=== PATIENT | female | born 1935 | race Caucasian/White ===

== ENCOUNTER 2018-04-30 23:38 | Emergency (ER) | payer MEDICARE, BC ==
[~2018-04-30] VITALS: Ht 157.5 cm; Wt 83.0 kg
[2018-05-01] MEDS ORDERED: Exforge 10-3201 EACH PO (00:27)
[2018-05-01] MEDS ORDERED: ATEN50 PO (00:27)
[2018-05-01] MEDS ORDERED: FURO40 PO (00:27)
[2018-05-01] MEDS ORDERED: CLON.1 PO (00:28)
[2018-05-01] MEDS ORDERED: K-Dur 20 meq T20 MEQ PO (00:28)
[2018-05-01] MEDS ORDERED: Simvastatin20 MG PO (00:29)
[2018-05-01] MEDS ORDERED: Flovent Diskus50 MCG INH (00:29)
[2018-05-01] MEDS ORDERED: CENTRUM SILVER1 EAC2 PO (00:32)
[2018-05-01] MEDS ORDERED: ASCO500 PO (00:32)
[2018-05-01] MEDS ORDERED: Fergon240 M1 PO (00:32)
[2018-05-01] MEDS ORDERED: ASPI81CH PO (00:33)
[2018-05-01] MEDS ORDERED: CHOL10002 PO (00:33)
[2018-05-01] MEDS ORDERED: CLARITIN10 MG PO (00:36)
[2018-05-01] MEDS ORDERED: [UNRECOGNIZED DRUG - OTHER] PO (00:36)
[2018-05-01] MEDS ORDERED: GLUCOSAMINE &1 EACH PO (00:37)
[2018-05-01] MEDS ORDERED: Colace100 MG PO (00:37)
[2018-05-01] MEDS ORDERED: ALLEGRA ALLERGY60 MG PO (00:37)
[2018-05-01] MEDS ORDERED: Metamucil Smooth1 EA PO (00:38)
[2018-05-01] MEDS ORDERED: Melatonin5 M1 PO (00:38)
[2018-05-01 00:51] LABS: BASOPHILS ABSOLUTE AUTO 0.02 K/mm3 (0.00-0.23); BASOPHILS PERCENT AUTO 0 % (0-2); EOSINOPHILS ABSOLUTE AUTO 0.08 K/mm3 (0.00-0.68); EOSINOPHILS PERCENT AUTO 1 % (0-6); Hematocrit 36.3 % (33.0-51.0); Hemoglobin 12.1 g/dL (11.5-16.0); IMMATURE GRAN ABSOLUTE AUTO 0.02 K/mm3 (0.00-0.10); IMMATURE GRAN PERCENT AUTO 0 % (0-1); LYMPHOCYTES ABSOLUTE AUTO 1.09 K/mm3 (0.84-5.20); LYMPHOCYTES PERCENT AUTO 17 % (21-46); MONOCYTES ABSOLUTE AUTO 0.61 K/mm3 (0.16-1.47); MONOCYTES PERCENT AUTO 10 % (4-13); Mean Corpuscular HGB 31.5 pg (26.0-34.0); Mean Corpuscular HGB Conc 33.3 g/dL (31.5-36.5); Mean Corpuscular Volume 95 fL (80-100); Mean Platelet Volume 9.8 fL (9.1-12.4); NEUTROPHILS ABSOLUTE AUTO 4.47 K/mm3 (1.96-9.15); NEUTROPHILS PERCENT AUTO 71 % (41-73); Platelet Count 211 K/mm3 (150-400); RDW Coefficient Variation 13.5 % (11.7-14.2); RDW Standard Deviation 46.1 fL (35.1-46.3); Red Blood Cell Count 3.84 M/mm3 (3.80-5.20); White Blood Cell Count 6.29 K/mm3 (4.00-11.30)
[2018-05-01 01:06] LABS: Anion Gap 9 mmol/L (6-16); Blood Urea Nitrogen 19 mg/dL (8-24); Bun/Creatinine Ratio 20.6 (12.0-20.0); CO2, Blood 25 mmol/L (21-32); Calcium, Blood 8.6 mg/dL (8.5-10.1); Chloride, Blood 110 mmol/L (98-108); Creatinine, Blood 0.92 mg/dL (0.40-1.00); Glomerular Filtration Rate >60 (60-); Glucose, Blood 103 mg/dL (70-99); Potassium, Blood 3.6 mmol/L (3.5-5.5); Sodium, Blood 144 mmol/L (136-145)
== END 2018-05-01 02:10 | disposition home or self-care (01) ==
LOC: ER 23:38
PROVIDERS: Emergency Medicine
DX: J40 Bronchitis, not specified as acute or chronic (principal); F41.9 Anxiety disorder, unspecified; R00.1 Bradycardia, unspecified; Z88.0 Allergy status to penicillin; Z88.8 Allergy status to other drugs, medicaments and biological substances; Z88.1 Allergy status to other antibiotic agents; Z88.5 Allergy status to narcotic agent; Z91.02 Food additives allergy status; Z79.899 Other long term (current) drug therapy; Z79.82 Long term (current) use of aspirin; I10 Essential (primary) hypertension; E78.00 Pure hypercholesterolemia, unspecified; D64.9 Anemia, unspecified
CPT/HCPCS: 36415; 71046; 80048; 85025; 93005; 93010; 99284-25